=== PATIENT | male | born 1965 | race Caucasian/White ===

== ENCOUNTER → 2021-01-04 | Day surgery (SDC) | payer OTHER ==
[~2021-01-04] VITALS: Ht 190.5 cm; Wt 215.4 kg
[~2021-01-04] MED LIST: BENAZEPRIL-HCT1 EAC1 PO; CLINDAMYCIN HC150 MG PO; CYCLOBENZAPRINE10 MG PO; IBUPROFEN800 MG PO; K-DUR20 MEQ PO; KEPPRA100 MG/1 M PO; LASIX20 MG PO; NORVASC5 MG PO; RISPERDAL 1MG TA1 MG PO; SPIRONOLACTONE50 MG PO; VITAMIN D250 MC1 PO
[2021-01-04 07:55] LABS: BASOPHIL 0.6 % (0-2); EOSINOPHIL 3.8 % (0-5); HCT 41.5 % (42.0-52.0); HGB 13.5 g/dl (13.2-18.0); LYMPHOCYTE 30.6 % (15-48); MCH 31.4 pg (25.0-31.0); MCHC 32.5 g/dL (32.0-36.0); MCV 96.5 fL (78.0-100.0); MONOCYTE 8.6 % (0-12); MPV 8.8 fL (6.0-9.5); NEUTROPHIL 55.7 % (41-80); NRBC 0; PLT 310 K/uL (150-400); RDW 13.7 % (11.5-14.0); WBC 7.2 K/uL (4.0-10.5)
[2021-01-04 08:06] LABS: INR 1.02 (0.9-1.2); PROTHROMBIN TIME 12.8 SECONDS (11.8-13.4); PTT 28.7 SECONDS (24.4-34.7)
[2021-01-04 08:20] LABS: BUN/CREAT RATIO (CALC) 15.3 RATIO; CREATININE 0.72 mg/dL (0.67-1.17)
== END | disposition home or self-care (01) ==
LOC: FAS 06:39
PROVIDERS: Anesthesiology; Oral & Maxillofacial Surgery
DX: K02.9 Dental caries, unspecified (principal); E66.01 Morbid (severe) obesity due to excess calories; Z68.43 Body mass index [BMI] 50.0-59.9, adult; G40.909 Epilepsy, unspecified, not intractable, without status epilepticus; I10 Essential (primary) hypertension; G47.30 Sleep apnea, unspecified; J45.909 Unspecified asthma, uncomplicated; F32.9 Major depressive disorder, single episode, unspecified; K21.9 Gastro-esophageal reflux disease without esophagitis; Z88.0 Allergy status to penicillin
CPT/HCPCS: 36415; 71045; 80048; 85025; 85610; 85730; 93005; J1100; J1885; J2250; J2405; J2704; J7120